=== PATIENT | female | born 1955 | race Two or more races ===

== ENCOUNTER → 2024-07-01 | Emergency (ER) | payer SELFPAY ==
[~2024-07-01] VITALS: Ht 149.9 cm; Wt 68.9 kg
[2024-07-01] MEDS: MORPHINE SULFATE INJ 2 MG/ML DISP.SYRIN IM ONE (17:59)
[2024-07-01] MEDS: ONDANSETRON 4 MG TAB.RAPDIS PO ONE (18:00)
[2024-07-01 19:21] VITALS: BP 121/68; TEMP 98.6; O2SAT 99
== END | disposition home or self-care (01) ==
LOC: ER 16:41
DX: S52.612A Displaced fracture of left ulna styloid process, initial encounter for closed fracture (principal); S52.592A Other fractures of lower end of left radius, initial encounter for closed fracture; W01.0XXA Fall on same level from slipping, tripping and stumbling without subsequent striking against object, initial encounter; Y93.89 Activity, other specified; Y92.89 Other specified places as the place of occurrence of the external cause; Y99.8 Other external cause status
CPT/HCPCS: 73110